=== PATIENT | female | born 1975 | race Caucasian/White ===

== ENCOUNTER 2017-01-07 02:58 | Emergency (ER) | payer OTHER ==
--- NOTE | ~2017-01-07 | CT4 ---
[facility] A Service of [facility] RADIOLOGY TEXT RESULTS PATIENT: IRVIN MATA LOCATION: [facility] : [birth year] UNIT #: [id number] AGE: [address]: Brittny Lam APRN SEX: F ORDER DR: [id number] [facility] [address] [place], [place] [address] [id number] MR#: [id number] Acc #: [id number] NAME: IRVIN MATA : 1975 SEX: F STUDY DATE/TIME: 01/07/2017 UNIT: [facility] ROOM: STUDY DESCRIPTION: CT Abd and Pelv Wo Cont Attending Physician: Brittny Lam A.P.R.N. Ordering Physician: Brittny Lam A.P.R.N. Primary Care Physician: Janell Mora M.D. MEDICAL IMAGING REPORT This report is preliminary unless electronic signature is present EXAM Abdomen and pelvis CT, 01/07/2017 at 03:13. HISTORY Nausea and right flank pain with generalized weakness for the last 2 weeks. Diagnosed with kidney stones 2 week ago. Pain currently 10/10. TECHNIQUE Axial images were obtained through the abdomen and pelvis without contrast. Multiplanar reformats were obtained. This CT exam was performed with one or more of the following radiation dose reduction techniques: automatic exposure control, adjustment of mA and/or kV according to patient size, and iterative reconstruction. COMPARISON STUDIES Comparison made with 10/09/2015. FINDINGS ABDOMEN: Lung bases are clear. Gallbladder is normal. The unopacified GI tract is normal. There are multiple bilateral nonobstructing renal stones. 1 of the larger stones is in the left kidney, measuring about 5 mm in size. There is moderate right hydronephrosis, secondary to 2 stones in the distal ureter. The larger and more distal stone is just above the ureterovesical junction. It measures about 6 mm in size. A few cm proximal to the larger stone is a smaller stone measuring about 4 mm in size. No ureteral stones are seen on the left side, and there is no left-sided hydronephrosis. The unenhanced solid organs are otherwise normal. PELVIS: Urinary bladder is decompressed, but grossly normal. The uterus is retroflexed. Solid pelvic organs are otherwise unremarkable. The appendix is normal. The remainder of the unopacified GI tract is normal, as well. [facility] A Service of [facility] RADIOLOGY TEXT RESULTS PATIENT: IRVIN MATA LOCATION: [facility] : [birth year] UNIT #: [id number] AGE: [address]: Brittny Lam APRN SEX: F ORDER DR: IMPRESSION 1. Moderate right hydronephrosis secondary to 2 stones in the distal right ureter. The larger is just above the UVJ, measuring nearly 6 mm in size, and the smaller is a few cm more proximal to the larger stone, and it measures about 4 mm in size. 2. Bilateral nonobstructing renal stones. 3. The remainder of the abdomen and pelvis CT is negative. Dictated by... Jermaine Nials Jr., M.D. THIS IS AN ELECTRONICALLY VERIFIED REPORT Jermaine Nails Jr., M.D. at 01/07/2017 12:40 PM MOISES/mp TD: 01/07/2017 10:03 JOB #: [id number] MEDICAL IMAGING REPORT COPY
--- NOTE | ~2017-01-07 | CO ---
Unit #: [id number] #: [id number] Patient: IRVIN MATA [id number] [address] [place], [place] [address] [id number] MR#: [id number] NAME: IRVIN MATA ROOM: Age: 41 Sex: F Admission Date: 01/07/2017 : 1975 Attending Physician: Brittny Lam A.P.R.N. Primary Care Physician: Janell Mora M.D. CONSULTATION REPORT HISTORY OF PRESENT ILLNESS The patient is a 41-year-old female with history of stone disease, two-day history of nausea, right flank pain partially relieved with ibuprofen and Ultram. Reported to the emergency room. A 6 mm distal right ureteral stone, a 3 mm more proximal ureteral stone identified with proximal hydronephrosis. Intrarenal stones appreciated. No fevers, chills, nausea, vomiting, gross hematuria, dysuria. PAST MEDICAL HISTORY As above. PAST SURGICAL HISTORY Stone surgery. ALLERGIES See written record. SOCIAL HISTORY History of tobacco. No alcohol or recreational drugs. FAMILY HISTORY Noncontributory. REVIEW OF SYSTEMS The patient denies headaches, vision changes, hearing changes, cough, sore throat, chest pain, shortness of breath, diarrhea, constipation, numbness or tingling of extremities, rashes, bruising. PHYSICAL EXAMINATION VITAL SIGNS: Afebrile. Vital signs stable. GENERAL: Resting in bed in mild distress. HEENT: Normocephalic and atraumatic. Extraocular muscles intact grossly. NECK: Soft, supple. No supraclavicular lymphadenopathy. RESPIRATORY: Normal respiratory effort. Normal to palpation. ABDOMEN: Soft, nontender. No CVA tenderness. EXTREMITIES: Full range of motion. No edema in bilateral extremities. PSYCHIATRIC: Normal mood and affect. Mild distress. NEUROLOGIC: Cranial nerves II-XII grossly intact. DIAGNOSTIC STUDIES LABORATORY: Creatinine 0.7. White blood cell count 6.1. Urinalysis: No bacteria, 100-200 red blood cells per high-powered field. IMAGING: Films reviewed as detailed above. Unit #: [id number] #: [id number] Patient: IRVIN MATA ASSESSMENT 1. Renal stone. 2. Hydronephrosis, right. 3. Right distal ureteral calculi. PLAN Films reviewed. Discussed trial of passage versus stone intervention. She has elected for ESWL therapy with stent insertion. Risks, benefits, alternatives extensively counseled to the patient. Dictated by... Marin Aponte/minna TD: 01/07/2017 12:48 JOB #: [id number] CONSULTATION REPORT X Brady Teague MD X CONSULTATION REPORT
[~2017-01-07 02:58] MED LIST: ACETAMINOPHEN PO; ADDERALL PO; ALPRAZOLAM PO; AMOXICILLIN875 MG PO; ATIVAN PO; AURODEX EAR DRO15 ML OT; AZO PO; AZO STANDARD97.5 MG; BACTRIM DS TABL1 TA1 PO; BACTRIM DS TABL1 TA2 PO; BACTRIM DS TABL1 TAB PO; CIPRO PO; CLARITIN10 M1 PO; DOXYCYCLINE HY100 M1 PO; DOXYCYCLINE PO; FIORICET 50-321 EACH PO; FLEXERIL10 MG PO; FLOMAX0.4 M1 PO; FLONASE16 GM; IBUPROFEN PO; IBUPROFEN800 MG PO; KEFLEX500 M1 PO; KLONOPIN PO; KLONOPIN1 MG PO; LITHIUM PO; LORTAB 7.5-5001 TAB PO; MACROBID 100 M100 MG PO; MEDROL PO; NEURONTIN; NEURONTIN300 MG PO; NO MEDICATIONS; NORCO 5/325 TAB1 TAB PO; PERCOCET; PERCOCET 5-3251 TAB PO; PROTONIX PO; PROZAC; PROZAC PO; PYRIDIUM; PYRIDIUM PO; PYRIDIUM100 MG PO; SUDAFED PO; SUDAFED30 M1 PO; TRAZODONE PO; ULTRAM PO; URISTAT; VICODIN 5/500 T1 TAB PO; VOLTAREN75 MG PO
[2017-01-07 03:50] LABS: URINE SOURCE CLEAN CATCH
[2017-01-07 03:59] LABS: BASOPHIL# 0.1 X10e3 (0-0.3); BASOPHIL% 1.1 % (0-2.5); EOSINOPHIL# 0.2 X10e3 (0-0.7); EOSINOPHIL% 3.7 % (0.0-7.0); HEMOGLOBIN 12.8 gm/dL (12.0-16.0); LYMPHOCYTE# 2.5 X10e3 (1.0-3.5); LYMPHOCYTE% 41.8 % (17.0-45.0); MEAN CELL VOLUME 93.8 FL (83-96); MEAN CORPUSCULAR HEMOGLOBIN 30.9 PG (28-34); MEAN CORPUSCULAR HGB CONC 32.9 g/dL (30-36); MEAN PLATELET VOLUME 8.1 FL (6.5-11.5); MONOCYTE# 0.7 X10e3 (0-1.0); MONOCYTE% 11.2 % (3.0-12.0); NEUTROPHIL# 2.6 X10e3 (1.5-7.1); NEUTROPHIL% 42.2 % (40-75); PLATELET COUNT 300 X10e3 (140-420); RED BLOOD COUNT 4.16 X10e (3.90-5.30); RED CELL DISTRIBUTION WIDTH 13.9 % (11.0-15.5); WHITE BLOOD COUNT 6.1 X10e3 (4.0-10.5)
[2017-01-07 04:00] LABS: URINE APPEARANCE TURBID; URINE BLOOD 3+ (NEG); URINE GLUCOSE NEG (NEG); URINE KETONE 2+ (NEG); URINE LEUKOCYTE ESTERASE 2+ (NEG); URINE NITRATE POS (NEG); URINE PROTEIN 1+ (NEG); URINE SPECIFIC GRAVITY 1.027 (1.003-1.035)
[2017-01-07 04:01] LABS: DIFF IND NO
[2017-01-07 04:02] LABS: URBCS1 AUWI 100-200 /[HPF] (0-2); URINE BACTERIA AUWI NEG (NEGATIVE); URINE SQUAMOUS EPITHELIAL CELL MOD /[HPF]
[2017-01-07 04:19] LABS: URINE COLOR ORANGE
[2017-01-07 04:20] LABS: BLOOD UREA NITROGEN 14 mg/dL (9-23); CARBON DIOXIDE 28 mmol/L (22-31); CHLORIDE 103 mmol/L (100-111); CREATININE SERUM 0.7 mg/dL (0.6-1.4); GLOM FILT RATE Estimated ABOVE60 mL/min (>60); GLUCOSE FASTING 102 mg/dL (70-110); POTASSIUM 3.3 mmol/L (3.5-5.1); SODIUM 138 mmol/L (135-145)
[2017-01-07 04:20] LABS: CULTURE INDICATED? NO; URINE BILIRUBIN NEG (NEG); UWBCS1 AUWI 0-2 (0-5)
== END 2017-01-07 07:06 | disposition home or self-care (01) ==
LOC: CED 02:58
PROVIDERS: Nurse Practitioner
DX: N13.2 Hydronephrosis with renal and ureteral calculous obstruction (principal); F17.210 Nicotine dependence, cigarettes, uncomplicated; Z98.51 Tubal ligation status; Z88.5 Allergy status to narcotic agent; Z87.442 Personal history of urinary calculi; Z88.1 Allergy status to other antibiotic agents
CPT/HCPCS: 36415; 74176; 80048; 81003; 84703; 85025; 96361; 96365; 96375; 99284; J0696; J1885; J2405; J2550